=== PATIENT | female | born 1990 | race Two or more races ===

== ENCOUNTER 2018-01-16 13:35 | Emergency (ER) | payer OTHER ==
[~2018-01-16] VITALS: Ht 172.7 cm; Wt 56.7 kg
[2018-01-16 13:47] VITALS: BP 125/65
--- NOTE | 2018-01-16 15:28 | NUR ---
LAC REPAIR DONE BY RENATA CONN. PROVIDED W/ WOUND CARE AND SPLINT. PT D/C HOME IN STABLE COND.
== END 2018-01-16 15:30 | disposition home or self-care (01) ==
LOC: ER 13:37
DX: S61.215A Laceration without foreign body of left ring finger without damage to nail, initial encounter (principal); J45.909 Unspecified asthma, uncomplicated; W26.8XXA Contact with other sharp object(s), not elsewhere classified, initial encounter; Y93.89 Activity, other specified; Y92.89 Other specified places as the place of occurrence of the external cause; Y99.8 Other external cause status
CPT/HCPCS: A4606; A6402; Z7610